=== PATIENT | female | born 1980 | race Hispanic/Latino ===

== ENCOUNTER 2025-08-30 13:35 | Emergency (ER) | payer SELFPAY ==
[2025-08-30 13:37] VITALS: BP 175/119; PULSE 82; RESP 14; TEMP 36.6; O2SAT 99
--- NOTE | 2025-08-30 14:09 | EDS_ITS ---
HPI History of Present Illness Chief Complaint: Upper Extremity Injury Narrative Narrative: 45-year-old female, [id number], presents with 2 weeks of right shoulder pain. She denies any injury. No fevers or chills, no chest pain or shortness of breath. She states that she has not been working overhead, but is right-hand dominant. Over the last 2 weeks, she has pain with movement of her right arm. It is mainly in her right trapezius, then diffusely in her right shoulder as well. This morning she took Tylenol, then half of an ibuprofen. Pain worse with movement, relieved by nothing. No nausea or vomiting, no other symptoms. [facility] Medical History Shoulder pain Home Medications ?Medication ?Instructions ?Recorded ?Last Taken ?Type lisinopril PO DAILY HTN 08/30/25 History naproxen sodium 220 mg capsule 220 mg PO PRN PAIN 05/1908/30/25 History (Aleve) orphenadrine citrate 100 mg 100 mg PO BID PRN muscle s pasm #20 08/30/25 Unknown Rx tablet,extended release tabs Allergy/AdvReac Type Severity Reaction Status Date / Time No Known Allergies Allergy Verified 08/30/25 13:39 Social History Smoking Status: Unknown if ever smoked ROS ROS ED ROS Narrative Review of systems is positive for right shoulder pain, [id number], no fevers or chills, no nausea or vomiting. No chest pain or shortness of breath. No abdominal pain. Pain worse with movement. Mainly in right trapezius and diffusely through right shoulder. Becomes sharp and stabbing. EXAM Physical Exam Narrative Exam Narrative: Afebrile. Vital signs noted. Nontoxic-appearing. Cardiovascular examination feels regular rate and rhythm. Lungs are clear to auscultation bilaterally. Abdomen is soft and nontender with positive bowel sounds. Diffuse tenderness to palpation right shoulder. No crepitance. Positive tenderness to palpation right trapezius. Neurovascularly intact distally with palpable radial pulse. Full range of motion of wrist, elbows, and fingers. Const Vital Signs: 08/30/25 13:37 Temperature 98 F Temperature Source Oral Pulse Rate 82 Respiratory Rate 14 Blood Pressure 175/119 H Blood Pressure Mean 137 Pulse Ox 99 Oxygen Delivery Method Room Air MDM MDM MDM Narrative Medical decision making narrative: Differential diagnosis includes but not limited to bicipital tendinitis versus bursitis versus trapezius muscle strain versus rotator cuff tear/partial tear. I have low suspicion for any referred pain from the abdomen including ga llbladder pathology because she is nontender in the right upper quadrant. I also have a low suspicion for ACS and referred pain as the pain is reproducible in the trapezius. X-rays were obtained to help rule out fracture and dislocation but clinically she does not have a dislocation. She was given an oral muscle relaxer here in the emergency department. On my individual interpretation of the x-rays of the right shoulder, there is no evidence of dislocation or fracture. I reviewed the radiology report which confirms my independent interpretation. At this point in time, upon repeat examination at approximately 1450, she states she feels markedly improved. I do feel that she probably has more of a trapezial muscle strain with spasming as well. She can take [id number] medications like Tylenol and/or ibuprofen but I wrote her prescription for muscle relaxers in the form of Norflex 100 mg to take as needed. I feel she be discharged to follow-up with her primary care provider. Return instructions were reviewed. Disposition is discharged home in stable condition. History & Record Review Discussion w/independent historian: Patient Additional record(s) reviewed:: Prior ED visit (No prior ED visits) Discharge Plan Triage Chief Complaint: Upper Extremity Injury ED Provider: Puma Prieto Dx/Rx/DC Orders Clinical Impression: Acute pain of right shoulder, Right shoulder strain, Trapezius strain Instructions: ED Muscle Strain, Extremity, ED Shoulder Pain, Uncertain Cause Prescriptions: New orphenadrine citrate 100 mg tablet extended release 100 mg PO BID PRN (Reason: muscle spasm) Qty: 20 0RF No Action naproxen sodium [Aleve] 220 mg capsule 220 mg PO PRN lisinopril PO DAILY Primary Care Provider: [facility] Doctor,Out of Referrals: NOT,DEFINED [Non-Staff, None] Activity Restrictions/Additional Instructions: Follow-up with your primary care provider. Tylenol and/or ibuprofen as needed for pain. Muscle relaxer as needed. Beware of drowsiness and dizziness with the use of a muscle relaxer. Return with new or worsening symptoms. Print Language: Kazakh Disposition Disposition: Home, Self Care
[2025-08-30] MEDS: Orphenadrine 100 MG Tablet PO (14:20)
--- NOTE | 2025-08-30 14:20 | RAD_ITS ---
PROCEDURE: SHOULDER MIN 2 VIEWS 08/30/2025 REASON FOR EXAM: PAIN TECHNIQUE: Procedure Code: RADSH Modality: DX Procedure: SHOULDER MIN 2 VIEWS Laterality: Right shoulder. COMPARISON: None FINDINGS: Bones: No fracture is seen. Joints: Normal alignment of the acromioclavicular and glenohumeral joints. Soft tissues: Soft tissues are unremarkable. Other: RAD/Shoulder min 2 Views IMPRESSION: NO ACUTE FRACTURE OR DISLOCATION. Reading Location: [id number]
[2025-08-30 15:26] VITALS: BP 155/87; PULSE 75; RESP 16; TEMP 36.6; O2SAT 99
== END 2025-08-30 15:26 | disposition home or self-care (01) ==
PROVIDERS: Emergency Provider Emergency Medicine; Visit Provider Emergency Medicine
DX: S46.911A Strain of unspecified muscle, fascia and tendon at shoulder and upper arm level, right arm, initial encounter (principal); S29.012A Strain of muscle and tendon of back wall of thorax, initial encounter; Z79.899 Other long term (current) drug therapy; I10 Essential (primary) hypertension; X58.XXXA Exposure to other specified factors, initial encounter
CPT/HCPCS: 73030; 99282